=== PATIENT | male | born 1985 | race African-American/Black ===

== ENCOUNTER 2019-04-25 07:35 | Emergency (ER) | payer SELFPAY ==
[2019-04-25] MEDS ORDERED: VANCOMYCIN HCL INJ 1000 MG VIAL IV ONE (08:52)
[2019-04-25] MEDS ORDERED: AMPICILLIN SOD/SULBACTAM 3 GM VIAL IV ONE (08:52)
--- NOTE | 2019-04-25 09:04 | ER Document Report ---
ED General - General TRAVEL OUTSIDE OF THE [place] IN LAST 30 DAYS: No - Related Data Home Medications: antibiotics(doesnt rememebr name) <NEENA ORONA - Last Filed: 04/25/19 10:45> <LEVAR BRAY - Last Filed: 04/25/19 11:13> - General Chief Complaint: Neck Swelling Stated Complaint: NECK SWELLING Time Seen by Provider: 04/25/19 08:38 Primary Care Provider: JIMMY MCKEON DO [ASSOCIATE] - Follow up as needed LISA CARL MD [ACTIVE STAFF] - Follow up as needed - [facility] Notes: Patient is a 33-year-old male no significant past medical history presents complaining of cellulitis to the right posterior lateral neck is been present for the past several days. He was evaluated a couple days ago at another emergency department and had a CT performed which showed cellulitis. He was given an IV antibiotic and steroid at that time and was sent home on Keflex. Patient states that he has been taking his Keflex, may have missed 1 dose, but has been taking it and woke up this morning with worsening swelling and pain. He is able to eat and drink without difficulty. He is urinating normally and having normal bowel movements. He has not had a history of abscesses requiring incision and drainage in the past. No history of IV drug abuse. Denies drug allergies. No hoarseness or drooling. Denies any headache, fever, changes in vision/speech/mentation/hearing, URI, sore throat, chest pain, palpitations, syncope, cough, shortness of breath, wheeze, dyspnea, abdominal pain, nausea/vomiting/diarrhea, urinary retention, dysuria, hematuria, or rash. (NEENA ORONA) - Related Data Allergies/Adverse Reactions: No Known Allergies Allergy (Verified 04/25/19 07:44) Past Medical History - Social History Smoking Status: Never Smoker Chew tobacco use (# tins/day): No Frequency of alcohol use: Social Drug Abuse: None Family History: Reviewed & Not Pertinent Patient has suicidal ideation: No Patient has homicidal ideation: No <NEENA ORONA - Last Filed: 04/25/19 10:45> Review of Systems - Review of Systems -: Yes All other systems reviewed and negative <NEENA ORONA - Last Filed: 04/25/19 10:45> Physical Exam <PORFIRIO ORONAN - Last Filed: 04/25/19 10:45> - Vital signs Vitals: Temp Pulse Resp BP Pulse Ox 98.0 F 90 18 160/97 H 97 04/25/19 07:41 04/25/19 07:41 04/25/19 07:41 04/25/19 07:41 04/25/19 07:41 - Notes Notes: PHYSICAL EXAMINATION: GENERAL: Well-appearing, well-nourished and in no acute distress. HEAD: Atraumatic, normocephalic. EYES: Pupils equal round and reactive to light, extraocular movements intact, sclera anicteric, conjunctiva are normal. ENT: EAC clear b/l. TM's intact b/l without erythema, fluid, or perforation. Nares patent and without discharge. oropharynx clear without exudates. No tonsilar hypertrophy or erythema. Moist mucous membranes. No sinus tenderness. NECK: Normal range of motion. no rigidity/meningismus. There is noted induration and swelling to the posterolateral rt neck with associated te nderness. No obvious areas of fluctuance. No streaks or discharge noted. LUNGS: Breath sounds clear to auscultation bilaterally and equal. No wheezes rales or rhonchi. HEART: Regular rate and rhythm without murmurs, rubs, gallops. Musculoskeletal: FROM to passive/active. Strength 5+/5. Extremities: No cyanosis, clubbing, or edema b/l. Peripheral pulses 2+. Capillary refill less than 3 seconds. NEUROLOGICAL: Cranial nerves grossly intact. Normal speech, normal gait. PSYCH: Normal mood, normal affect. SKIN: see above (ADWOA,NEENA) Course - Laboratory Result Diagrams: 04/25/19 09:24 04/25/19 09:24 <NEENA ORONA - Last Filed: 04/25/19 10:45> - Laboratory Result Diagrams: 04/25/19 09:24 04/25/19 09:24 <LEVAR BRAY - Last Filed: 04/25/19 11:13> - Re-evaluation Re-evalutation: 04/25/19 09:[address] Bray. We will check labs and US to further evaluate and provide IV antibiotic at this time. 04/25/19 10:45 Patient is an afebrile, well-hydrated, 33-year-old male who presents with a right posterior lateral neck cellulitis. Vitals are acceptable without significant tachycardia, tachypnea, or hypoxia. PE is otherwise unremarkable. Patient is nontoxic-appearing and is tolerating p.o. without difficulty. He does have a leukocytosis present with an unremarkable lab work-up otherwise. Blood cultures are pending. Recommendations based on his H&P today would be IV antibiotics as well as admission to the hospital. Patient did receive Unasyn IV, but did not receive his vancomycin. Patient states that he has to leave to go to a meeting. I did review with the patient that with the significant cellulitis in that area it can cause airway compromise if it keeps getting worse as well as other secondary complications with a worse case scenario of sepsis and . Patient verbalized understanding of this and is agreeable to sign out AGAINST MEDICAL ADVICE. Risks and benefits were thoroughly reviewed patient will be signing out AGAINST MEDICAL ADVICE. Strict return precautions reviewed. He is to follow-up with his family doctor on Saturday. I will send him home with a prescription for Bactrim to add to his Keflex. Return to the ED with any other worsening/concerning symptoms. Patient is in agreement. (NEENA ORONA) - Vital Signs Vital signs: Temp Pulse Resp BP Pulse Ox 97.6 F 92 16 156/101 H 99 04/25/19 11:02 04/25/19 11:02 04/25/19 11:02 04/25/19 11:02 04/25/19 11:02 - Laboratory Laboratory results interpreted by me: 04/25/19 09:24 WBC 19.8 H Absolute Neuts (auto) 12.0 H Absolute Lymphs (auto) 5.6 H Absolute Monos (auto) 2.1 H Discharge <NEENA ORONA - Last Filed: 04/25/19 10:45> <LEVAR BRAY - Last Filed: 04/25/19 11:13> - Discharge Clinical Impression: Cellulitis, neck Condition: Stable Disposition: AGAINST MEDICAL ADVICE Additional Instructions: As reviewed, you are electing to sign out AGAINST MEDICAL ADVICE. We would have preferred you to remain for IV antibiotics and admission to the hospital. You are aware the risk and benefits of her decision as well as worsening illness, sepsis, and worst case scenario of . He may return to the emergency department for any other worsening or concerning symptoms. Do not hesitate to return if needed. Keep the skin clean Wash with soap and water Tylenol/ibuprofen if needed Triple antibiotic ointment daily Take medication as directed Monitor for any worsening symptoms Recheck with your PCM on Saturday Consider consult with ENT/General Surgeon for ongoing/worsening symptoms Return to the ED with any worsening symptoms and/or development of fever, headache, chest pain, palpitations, syncope, shortness of breath, trouble breathing, abdominal pain, n/v/d, abscess, purulent discharge, red streaks, worsening swelling, or other worsening symptoms that are concerning to you. Prescriptions: Sulfamethoxazole/Trimethoprim [Bactrim Ds Tablet] 1 each PO BID #20 tablet Forms: Elevated Blood Pressure Referrals: JIMMY MCKEON DO [ASSOCIATE] - Follow up as needed LISA CARL MD [ACTIVE STAFF] - Follow up as needed Doctor's Note <LEVAR BRAY - Last Filed: 04/25/19 11:13> Notes: 04/25/19 11:12 Pt was seen and evaluated by me as well. I agree with the workup and medical decision making with this pt. (LEVAR BRAY)
--- NOTE | 2019-04-25 09:27 | RADIOLOGY REPORT (SQ) ---
EXAM DESCRIPTION: U/S THYROID/SFT TISS HD NECK COMPLETED DATE/TIME: 04/25/2019 9:15 am REASON FOR STUDY: cellulitis rt posterolateral neck/?abscess COMPARISON: None. TECHNIQUE: Dynamic and static edouard-scale images acquired of the posterior neck soft tissues. Selecte d additional color/power Doppler images recorded. All images stored to PACS. LIMITATIONS: None. FINDINGS: Ultrasound of the posterior neck soft tissues was performed. No discrete cystic or solid lesions are identified. Specifically, no focal soft tissue abscess is id entified. IMPRESSION: No posterior neck subcutaneous soft tissue abscess is identified TECHNICAL DOCUMENTATION: JOB ID: [id number] [employer]- All Rights Reserved Reading location - IP/workstation name: [email or web address]
[2019-04-25 09:55] LABS: ABSOLUTE EOSINOPHILS # (AUTO) 0.1 10^3/uL (0.0-0.6); ABSOLUTE LYMPHOCYTES (AUTO) 5.6 10^3/uL (0.5-4.7); ABSOLUTE MONOCYTES (AUTO) 2.1 10^3/uL (0.1-1.4); BASOPHILS % (AUTO) 0.2 % (0-2); EOSINOPHILS % (AUTO) 0.4 % (0-6); HEMATOCRIT 46.1 % (37.9-51.0); HEMOGLOBIN 15.6 g/dL (13.5-17.0); LYMPHOCYTES % (AUTO) 28.3 % (13-45); MEAN CORPUSCULAR HEMOGLOBIN 29.4 pg (27.0-33.4); MEAN CORPUSCULAR HGB CONC 33.8 g/dL (32.0-36.0); MEAN CORPUSCULAR VOLUME 87 fl (80-97); MONOCYTES % (AUTO) 10.7 % (3-13); PLATELET COUNT 345 10^3/uL (150-450); RED BLOOD COUNT 5.29 10^6/uL (4.35-5.55); RED CELL DISTRIBUTION WIDTH 13.6 % (11.5-14.0); SEGMENTED NEUTROPHILS % (AUTO) 60.4 % (42-78); TOTAL CELLS COUNTED % (AUTO) 100 %; WHITE BLOOD COUNT 19.8 10^3/uL (4.0-10.5)
[2019-04-25 10:01] LABS: ALBUMIN 4.3 g/dL (3.5-5.0); ALKALINE PHOSPHATASE 87 U/L (38-126); ANION GAP 9 (5-19); ASPARTATE AMINO TRANSFERASE 28 U/L (17-59); BILIRUBIN,DIRECT 0.1 mg/dL (0.0-0.4); BILIRUBIN,TOTAL 0.5 mg/dL (0.2-1.3); BLOOD UREA NITROGEN 15 mg/dL (7-20); CALCIUM 9.1 mg/dL (8.4-10.2); CARBON DIOXIDE 28 mmol/L (22-30); CHLORIDE 103 mmol/L (98-107); GLUCOSE 76 mg/dL (75-110); POTASSIUM 4.2 mmol/L (3.6-5.0); TOTAL PROTEIN 7.4 g/dL (6.3-8.2)
[2019-04-25 11:03] VITALS: BP 156/101
== END 2019-04-25 10:59 | disposition left against medical advice (07) ==
LOC: ER 07:35
DX: L03.221 Cellulitis of neck (principal)
CPT/HCPCS: 99283; 96374; 36415; 87040; 83605; 85025; 80053; 76536; J0295

== ENCOUNTER 2019-06-24 08:09 | Emergency (ER) | payer SELFPAY ==
[2019-06-24] MEDS ORDERED: DIPH/PERTUSS(ACELL)/TETANUS VAC/PF 0.5 ML SYR (>=10YO) IM ONE (08:51)
--- NOTE | 2019-06-24 08:55 | ER Document Report ---
HPI - HPI Patient complains to provider of: laceration Time Seen by Provider: 06/24/19 08:46 Onset: Yesterday Onset/Duration: Sudden Quality of pain: Achy Pain Level: 2 Context: 35-year-old male presents emergency department with laceration to the back of his leg. Reports he fell last night at approximately 1900 at work hitting his right thigh behind knee on a trailer hitch. Patient reports laceration approximately 1 inch long. Patient reports when he woke up he noticed blood on the sheets. He does not remember when his last tetanus was. Patient reports he took Tylenol this morning for the pain. Associated Symptoms: None Exacerbated by: Denies Relieved by: Denies Similar symptoms previously: No Recently seen / treated by doctor: No - CONSTITUTIONAL Constitutional: DENIES: Fever, Chills - EENT EENT: DENIES: Sore Throat, Ear Pain, Eye problems - NEURO Neurology: DENIES: Headache, Weakness, Vision blurred, Dizzinesss / Vertigo - CARDIOVASCULAR Cardiovascular: DENIES: Chest pain - RESPIRATORY Respiratory: DENIES: Trouble Breathing, Coughing - GASTROINTESTINAL Gastrointestinal: DENIES: Abdominal Pain, Black / Bloody Stools - REPRODUCTIVE Reproductive: DENIES: : - MUSCULOSKELETAL Musculoskeletal: DENIES: Extremity pain Past Medical History - General Information source: Patient - Social History Smoking Status: Never Smoker Chew tobacco use (# tins/day): No Frequency of alcohol use: None Drug Abuse: None Occupation: construction Lives with: Family Family History: Reviewed & Not Pertinent Patient has suicidal ideation: No Patient has homicidal ideation: No - Medical History Medical History: Negative - Splenomegaly Past Surgical History: Reports: Hx Abdominal Surgery - Splenectomy, Hx Inguinal Hernia Vertical Provider Document - CONSTITUTIONAL Agree With Documented VS: Yes Exam Limitations: No Limitations General Appearance: WD/WN, No Apparent Distress - INFECTION CONTROL TRAVEL OUTSIDE OF THE [place] IN LAST 30 DAYS: No - HEENT HEENT: Atraumatic, Normocephalic - NECK Neck: Supple - RESPIRATORY Respiratory: No Respiratory Distress - CARDIOVASCULAR Cardiovascular: Regular Rate - MUSCULOSKELETAL/EXTREMETIES Musculoskeletal/Extremeties: MAEW, FROM, Tender - NEURO Level of Consciousness: Awake, Alert, Appropriate Motor/Sensory: No Motor Deficit - DERM Integumentary: Warm, Dry, Laceration - Approximately 1 inch horizontal laceration to the back of patient's right distal thigh. No active bleeding Course - Re-evaluation Re-evalutation: 06/24/19 09:51 1 cm laceration repaired with 5 nylon. Patient tolerated procedure well. He was instructed on signs and symptoms of infection. Instructed to return here in 10 days for suture removal or sooner if he sees any signs of infection. He verbalized understanding to all instructions. - Vital Signs Vital signs: Temp Pulse Resp BP Pulse Ox 98.2 F 82 18 162/87 H 99 06/24/19 08:18 06/24/19 08:18 06/24/19 08:18 06/24/19 08:18 06/24/19 08:18 Procedures - Laceration/Wound Repair Right Thigh Time completed: 09:49 Wound length (cm): 1 Wound's Depth, Shape: Superficial Laceration pre-procedure: Shur-Clens applied Anesthetic type: 1% Lidocaine Volume Anesthetic (mLs): 2 Irrigated w/ Saline (mLs): 250 Wound Repaired With: Sutures Suture Size/Type: 5:0, Nylon Number of Sutures: 2 Adult Front & Back picture: 1 - Area cleaned well with normal saline Saloni-[place]jud[place], 1 cm lac repaired with 5 nylon, patient tolerated procedure well 2 - Superficial scratch Discharge - Discharge Clinical Impression: Laceration of right thigh Qualifiers: Encounter type: initial encounter Qualified Code(s): S71.111A - Laceration without foreign body, right thigh, initial encounter Condition: Stable Disposition: HOME, SELF-CARE Instructions: Laceration Care ([facility]), Soap Cleansing ([facility]), Tetanus Immunization Given ([facility]) Additional Instructions: *You have been treated for laceration to right thigh *You have received a tetanus *Take Tylenol as indicated for pain *Monitor the site for signs of infection such as increasing pain, redness, sw elling, warmth *Keep the area clean *Follow up here in 10 days for suture removal *Return to the emergency department earlier should you see signs of infection or for any concerns Monitor your blood pressure. Your blood pressure was elevated today. This may be because you were anxious, in pain or because you need medication. It is important to follow up with your primary care provider for full evaluation. Forms: Elevated Blood Pressure, Return to Work
[2019-06-24] MEDS ORDERED: LIDOCAINE 1% INJ-PF (10 MG/ML) 30 ML SDV INJ ONE (09:16)
[2019-06-24 09:55] VITALS: BP 150/93
== END 2019-06-24 09:54 | disposition home or self-care (01) ==
LOC: ER 08:09
PROC: 0HQHXZZ Repair Right Upper Leg Skin, External Approach (ICD-10-PCS; principal; 2019-06-24)
DX: S71.111A Laceration without foreign body, right thigh, initial encounter (principal); S81.811A Laceration without foreign body, right lower leg, initial encounter; W22.8XXA Striking against or struck by other objects, initial encounter
CPT/HCPCS: 99282; 90471; 90715; 12001; J3490